=== PATIENT | female | born 1970 | race Caucasian/White ===

== ENCOUNTER 2020-11-05 12:00 | Emergency (ER) | payer OTHER ==
[~2020-11-05] VITALS: Ht 157.5 cm; Wt 113.4 kg
[2020-11-05 12:42] LABS: ANION GAP 5 mmol/L (7-16); BUN 7 mg/dL (7-18); CALCIUM 8.6 mg/dL (8.5-10.1); CHLORIDE 106 mmol/L (98-107); CO2 25 mmol/L (21-32); CREATININE 0.7 mg/dL (0.6-1.0); GLUCOSE 115 mg/dL (74-106); SODIUM 136 mmol/L (136-145)
[2020-11-05 12:44] LABS: POTASSIUM 4.5 mmol/L (3.5-5.1)
[2020-11-05 12:56] LABS: TROPONIN-I <0.06 ng/mL (<0.06)
[2020-11-05 13:43] LABS: ABSOLUTE NEUTROPHILS 4.8 thou/uL (1.4-8.2); BASOPHILS 0.6 % (0.0-2.0); EOSINOPHILS 8.2 % (0.0-3.0); HEMATOCRIT 42.4 % (37.0-47.0); HEMOGLOBIN 14.4 gm/dL (12.0-15.0); LYMPHOCYTES 23.5 % (24.0-44.0); MCH 30.3 pg (26.0-34.0); MCHC 33.8 g/dL (28.0-37.0); MCV 89.7 fL (80.0-100.0); MONOCYTES 8.3 % (1.0-8.0); PLATELET COUNT 241 thou/uL (150-400); POLYS 59.4 % (36.0-66.0); RBC 4.73 mil/uL (4.20-5.00); RDW 13.1 % (10.5-14.5)
[2020-11-05] MEDS ORDERED: MOBIC7.5 MG PO (15:06)
[2020-11-05] MEDS ORDERED: ZANAFLEX4 MG PO (15:06)
[2020-11-05 15:11] VITALS: BP 112/67
--- NOTE | 2020-11-06 07:17 | EKG ---
[place] [address] [facility] [place] [address] ELECTROCARDIOGRAM REPORT Name: VIVIAN COTTON Room #: SUSHANT Emerson#: [id number] Admission: 11/05/20 Attend Phys: Discharge: 11/05/20 Date of : 74 Report #: [id number] [facility] ED Test Date: 2020-11-05 Test Time: 12:07:07 Pat Name: VIVIAN COTTON Department: Room: Gender: F [employer]: [place] : 1970 Requested By: Erik Bravo Order Number: [id number] MD: Alonso Real Measurements Intervals [place] Rate: 66 P: 27 SD: 139 QRS: 12 QRSD: 88 T: 3 QT: 380 QTc: 399 Interpretive Statements Sinus rhythm Borderline T abnormalities, inferior leads No previous ECG available for comparison Electronically Signed On 11-06-2020 7:17:18 CDT by Alonso Real [email or web address] <ELECTRONICALLY SIGNED> By: Alonso Real MD, [facility] 11/06/20 0717 1207 1207 Alonso Real MD, FACC /EPI
== END 2020-11-05 15:11 | disposition home or self-care (01) ==
LOC: ER 12:00
PROVIDERS: Nurse Practitioner
DX: S29.011A Strain of muscle and tendon of front wall of thorax, initial encounter (principal); X58.XXXA Exposure to other specified factors, initial encounter; Y93.89 Activity, other specified; Y92.89 Other specified places as the place of occurrence of the external cause; Y99.8 Other external cause status